=== PATIENT | female | born 1970 | race Caucasian/White ===

== ENCOUNTER 2022-11-03 20:13 | Emergency (ER) | payer SELFPAY ==
[~2022-11-03] VITALS: Ht 162.6 cm; Wt 88.6 kg
[2022-11-03 20:20] VITALS: BP 112/87; PULSE 89; RESP 17; TEMP 98.3; O2SAT 99
== END 2022-11-04 04:43 | disposition left against medical advice (07) ==
LOC: ER 20:14
DX: M54.2 Cervicalgia (principal); Z53.21 Procedure and treatment not carried out due to patient leaving prior to being seen by health care provider
CPT/HCPCS: 99281